=== PATIENT | female | born 1980 | race Two or more races ===

== ENCOUNTER 2018-09-05 09:41 | Emergency (ER) | payer OTHER ==
[~2018-09-05] VITALS: Ht 170.2 cm; Wt 108.4 kg
[~2018-09-05 09:41] MED LIST: DIFLUCAN PO; GYNE-LOTRIMIN45 GM VG; HUMALOG100 UNIT/1 SUBCUTANEO; LANTUS SOL100 UNIT/1 SUBCUTANEO; LEVSIN/SL0.125 MG SL; PEPCID40 MG PO; ZOFRAN4 MG PO
[2018-09-05] MEDS ORDERED: ONGLYZA5 MG PO (10:34)
[2018-09-05] MEDS ORDERED: LIPITOR20 MG PO (10:35)
[2018-09-05] MEDS ORDERED: NEURONTIN600 MG PO (10:35)
[2018-09-05] MEDS ORDERED: ZESTRIL5 MG PO (10:35)
[2018-09-05] MEDS ORDERED: GLUCOTROL10 MG PO (10:35)
[2018-09-05] MEDS ORDERED: METFORMIN HCL500 M2 PO (10:36)
[2018-09-05] MEDS ORDERED: ASPIR 8181 MG (10:36)
== END 2018-09-05 14:10 | disposition home or self-care (01) ==
LOC: ER 09:41
DX: B34.9 Viral infection, unspecified (principal)

== ENCOUNTER 2020-04-08 08:37 | Emergency (ER) | payer OTHER ==
[~2020-04-08] VITALS: Ht 170.2 cm; Wt 104.8 kg
[~2020-04-08 08:37] MED LIST changes: +ASPIR 8181 MG; +GLUCOTROL10 MG PO; +LIPITOR20 MG PO; +METFORMIN HCL500 M2 PO; +NEURONTIN600 MG PO; +ONGLYZA5 MG PO; +ZESTRIL5 MG PO
== END 2020-04-08 09:20 | disposition home or self-care (01) ==
LOC: ER 08:37
DX: H10.11 Acute atopic conjunctivitis, right eye (principal)

== ENCOUNTER 2021-10-24 10:58 | Emergency (ER) | payer OTHER ==
[~2021-10-24] VITALS: Ht 170.2 cm; Wt 113.4 kg
== END 2021-10-24 13:34 ==
LOC: ER 10:58
DX: M62.838 Other muscle spasm (principal)

== ENCOUNTER 2023-09-19 08:30 | Emergency (ER) | payer OTHER ==
[~2023-09-19] VITALS: Ht 170.2 cm; Wt 103.0 kg
[2023-09-19] MEDS ORDERED: [UNRECOGNIZED DRUG - OTHER] (08:47)
== END 2023-09-19 09:43 | disposition home or self-care (01) ==
LOC: ER 08:30
DX: M25.561 Pain in right knee (principal)

== ENCOUNTER 2023-09-29 08:23 | Emergency (ER) | payer OTHER ==
[~2023-09-29] VITALS: Ht 170.2 cm; Wt 103.0 kg
[~2023-09-29 08:23] MED LIST changes: +[UNRECOGNIZED DRUG - OTHER]
[2023-09-29] MEDS ORDERED: SYNJARDY 5-1,01 EACH PO (08:32)
[2023-09-29] MEDS ORDERED: LANTUS SOL100 UNIT/1 (08:33)
[2023-09-29] MEDS ORDERED: HUMALOG100 UNIT/1 (08:34)
[2023-09-29] MEDS ORDERED: IBUPROFEN600 MG PO (10:30)
[2023-09-29] MEDS ORDERED: ZYRTEC10 MG PO (10:30)
[2023-09-29] MEDS ORDERED: MUCINEX DM ER1 EACH PO (10:30)
== END 2023-09-29 10:40 | disposition home or self-care (01) ==
LOC: ER 08:24
DX: U07.1 COVID-19 (principal); E11.9 Type 2 diabetes mellitus without complications; Z79.4 Long term (current) use of insulin; I10 Essential (primary) hypertension

== ENCOUNTER 2024-07-07 10:54 | Emergency (ER) | payer OTHER ==
[~2024-07-07] VITALS: Ht 172.7 cm; Wt 90.7 kg
[~2024-07-07 10:54] MED LIST changes: +HUMALOG100 UNIT/1; +IBUPROFEN600 MG PO; +LANTUS SOL100 UNIT/1; +MUCINEX DM ER1 EACH PO; +SYNJARDY 5-1,01 EACH PO; +ZYRTEC10 MG PO
== END 2024-07-07 11:54 | disposition home or self-care (01) ==
LOC: ER 10:56
DX: J06.9 Acute upper respiratory infection, unspecified (principal)

== ENCOUNTER 2024-08-04 12:13 | Emergency (ER) | payer OTHER ==
[~2024-08-04] VITALS: Ht 170.2 cm; Wt 95.3 kg
[2024-08-04] MEDS ORDERED: CEFTRIAXONE SODIUM 1,000 MG VIAL IM STA (16:30)
[2024-08-04] MEDS ORDERED: HYDROCODONE/CHLORPHEN P-STIREX 5 ML ML PO STA (16:30)
== END 2024-08-04 16:42 | disposition home or self-care (01) ==
LOC: ER 12:15
DX: J06.9 Acute upper respiratory infection, unspecified (principal); Z20.822 Contact with and (suspected) exposure to COVID-19

== ENCOUNTER 2024-09-05 08:58 | Emergency (ER) | payer OTHER ==
[~2024-09-05] VITALS: Ht 170.2 cm; Wt 104.3 kg
[2024-09-05 09:19] VITALS: BP 120/80; O2SAT 100
[2024-09-05] MEDS ORDERED: FAMOTIDINE/PF 20 MG/2 ML VIAL IV PUSH STA (09:58)
[2024-09-05] MEDS ORDERED: LACTOBACILLUS ACIDOPHILUS 1 CAP CAP PO STA (09:58)
[2024-09-05 11:10] LABS: CALCIUM 8.9 mg/dL (8.5-10.1); CREATININE SERUM 0.67 mg/dL (0.55-1.02); GFR 96.52; MAGNESIUM 1.7 mg/dL (1.8-2.4); POTASSIUM 3.68 mEq/L (3.5-5.1)
== END 2024-09-05 12:00 | disposition home or self-care (01) ==
LOC: ER 09:00
PROVIDERS: General Practice
DX: K52.89 Other specified noninfective gastroenteritis and colitis (principal)
CPT/HCPCS: 36415; 96365; 99282; J3490

== ENCOUNTER 2024-12-26 15:37 | Emergency (ER) | payer OTHER ==
[~2024-12-26] VITALS: Ht 167.6 cm; Wt 95.3 kg
[2024-12-26] MEDS ORDERED: 0.9 % SODIUM CHLORIDE 1,000 ML IV STA (18:27)
[2024-12-26] MEDS ORDERED: METOCLOPRAMIDE HCL 5 MG/ML VIAL IM STA (18:30)
[2024-12-26] MEDS ORDERED: FAMOtidine 10 MG/ML (4ML VIAL) IV PUSH STA (18:31)
[2024-12-26] MEDS ORDERED: METOCLOPRAMIDE HCL 5 MG/ML VIAL ONE (18:43)
[2024-12-26] MEDS ORDERED: FAMOtidine 200mg/20ml VIAL ONE (18:44)
[2024-12-26 19:21] LABS: HEMATOCRIT 44.2 % (36.0-45.00); HEMOGLOBIN 14.9 g/dL (12.0-15.00); MEAN CELL VOLUME 91.3 fL (80.00-100.00); MEAN CORPUSCULAR HEMOGLOBIN 30.7 pg (27.00-32.0); MEAN CORPUSCULAR HGB CONC 33.6 g/dl (32.0-36.0); PLATELET COUNT 337 K/uL (150-450); RED BLOOD COUNT 4.84 M/uL (4.00-6.00); RED CELL DISTRIBUTION WIDTH 12.9 % (11.5-14.5)
[2024-12-26 19:55] LABS: ALBUMIN 3.7 gm/dL (3.4-5.0); BILIRUBIN TOTAL 0.91 mg/dL (0.3-1.2); CREATININE SERUM 0.77 mg/dL (0.55-1.02); GFR 82.21; GLOBULINA 4.1 G/DL (2.4-3.5); POTASSIUM 3.75 mEq/L (3.5-5.1); TOTAL PROTEIN 7.8 gm/dL (6.4-8.2)
[2024-12-26 21:21] LABS: URINE APPEARANCE Clear; URINE BILIRRUBIN Negative (NEGATIVE); URINE BLOOD Negative; URINE COLOR Yellow; URINE LEUKOCYTE Negative; URINE NITRATE Negative; URINE PROTEIN Negative (NEGATIVE); URINE UROBILINOGEN 0.2 E.U./dl
[2024-12-26 21:25] LABS: URINE BACTERIA 1507.9 uL (0.0-1933); URINE EPITHELIAL CELLS 18.8 uL (0.0-38.8); URINE RBC 7.6 uL (0.0-20.8); URINE WBC 4.9 uL (0.0-23.2)
[2024-12-26 22:02] LABS: URINE CAST 0.14 uL (0.0-1.40); URINE GLUCOSE >=1000 MG/DL (NEGATIVE); URINE KETONE 80 (NEGATIVE)
== END 2024-12-26 22:38 | disposition home or self-care (01) ==
LOC: ER 15:40
DX: R10.9 Unspecified abdominal pain (principal); I10 Essential (primary) hypertension; E11.9 Type 2 diabetes mellitus without complications; Z79.4 Long term (current) use of insulin